=== PATIENT | female | born 1990 | race Caucasian/White ===

== ENCOUNTER 2019-01-23 08:00 | Inpatient (IN) ==
[2019-01-23] MEDS ORDERED: Metoclopramide 10 MG/2 ML VIAL IVP PRN (09:00)
[2019-01-23] MEDS ORDERED: Naloxone 0.4 MG/ML INJ IVP PRN (09:00)
[2019-01-23] MEDS ORDERED: Ringers Solution, Lactated 1,000 ML IVC SCH (09:00)
[2019-01-23] MEDS ORDERED: Ondansetron 4 MG/2 ML VIAL IVP PRN (09:00)
[2019-01-23] MEDS ORDERED: Famotidine 20 MG/2 ML VIAL IVP PRN (09:00)
[2019-01-23 09:17] LABS: Basophils % 0.2 %; Eosinophils # 0.1 K/mcL (0.0-0.6); Eosinophils % 0.9 %; Hematocrit 36.5 % (35.3-44.9); Hemoglobin 11.8 g/dL (11.5-15.4); Immature Granulocytes % 0.7 % (0-4); Lymphocytes # 1.4 K/mcL (0.6-4.6); Lymphocytes % 17.1 %; Mean Corpuscular HGB Conc 32.3 g/dL (31.6-35.5); Mean Corpuscular Hemoglobin 26.7 pg (28.0-33.3); Mean Corpuscular Volume 82.6 fL (83.0-100.0); Mean Platelet Volume 11.1 fL (9.4-12.4); Monocytes # 0.6 K/mcL (0.0-1.3); Monocytes % 7.9 %; Neutrophils # 5.9 K/mcL (1.6-8.9); Platelet Count 225 K/mcL (140-400); Red Blood Count 4.42 M/mcL (3.82-4.97); Red Cell Distribution Width 15.5 % (11.5-14.5); Segmented Neutrophils % 73.2 %
[2019-01-23 09:25] LABS: Amphetamine Screen,Urine Negative ng/mL (Cutoff=1000); Barbiturate Screen,Urine Negative ng/mL (Cutoff=200); Benzodiazepines Screen,Urine Negative ng/mL (Cutoff=200); Cannabinoid Screen,Urine Negative ng/mL (Cutoff = 50); Cocaine Screen,Urine Negative ng/mL (Cutoff= 300); Opiate Screen,Urine Negative ng/mL (Cutoff=300); Phencyclidine Screen,Urine Negative ng/mL (Cutoff=25)
--- NOTE | 2019-01-23 10:05 | OB Labor Progress Note ---
Date of Encounter: 01/23/19 Time of Encounter: 10:04 Labor Progress Note - Subjective Subjective: Pt is having irregular uc's - Cervix Cervix: 3-4/80/-2 - Heart Tones Heart Tones: RNST, CAt 1 - Interventions Interventions: AROM avg amt clear fluid - Plan Plan: Expect
[2019-01-23] MEDS ORDERED: miSOPROStol 25 MCG TABLET PO PRN (14:46)
--- NOTE | 2019-01-23 17:00 | OB/GYN History & Physical ---
Date of Encounter: 01/23/19 Time of Encounter: 16:58 Assessment and Plan (1) 39 weeks gestation of Current visit: Yes Status: Acute Pt presents for induction of labor. Will perform amniotomy and expect . History of Present Illness Chief complaint: Here for induction, h/o precipatous delivery HPI: Ms. Pickett is a 28 year old female female presents for induction of labor. has been uncomplicated. Pt reports + GFM, no vb or lof. Past Med Surg Social Fam HX - Past Medical History Source: patient, old records reviewed Medical history: no medical history, other Additional medical history: iron deficiency Psychiatric history: no psych history - Past Surgical History Additional surgical history: cosmetic surgert- tumy tuck and breast augmentation-2015. Tumor on right overy removed 2009 - Social History Smoking Status: Never smoker Smokeless Tobacco Status: No Alcohol use: none Drug use: none Obstetrical History - Pregnancies : 3 Para: 2 Medications and Allergies Vitamin Tablet 1 tab PO DAILY 01/23/19 [History] Allergy/AdvReac Type Severity Reaction Status Date / Time No Known Allergies Allergy Verified 01/23/19 08:54 Exam - Constitutional Constitutional: well developed, no acute distress - HEENT HEENT: EOMI, PERRL - Neck Neck exam: full ROM - Lungs Respiratory exam: CTAB - Cardiovascular Cardiovascular exam: RRR - Abdomen Abdomen: Present: gravid - Extremities Extremities exam: full ROM Deep Tendon Reflex Grade: 2+ Normal - Cervix Dilation: 4 Effacement: 90 Station: -2 () Results Result Diagrams: 01/23/19 08:45 Abnormal lab results MCV 82.6 fL (83.0-100.0) L 01/23/19 08:45 MCH 26.7 pg (28.0-33.3) L 01/23/19 08:45 RDW 15.5 % (11.5-14.5) H 01/23/19 08:45 All other labs normal. - VTE Reasons for not Prescribing Prophylaxis: Treatment not Indicated - Low risk for VTE
[2019-01-23] MEDS: *HR* Nalbuphine 10 MG/ML AMPUL IVP PRN ×2 (18:41→20:33)
[2019-01-23] MEDS ORDERED: Oxytocin 20 units/ LR 1000 mL 20 UNIT/1,000 ML BAG IVC ONE ×2 (20:22→22:31)
--- NOTE | 2019-01-23 21:57 | OB/GYN Procedure Note ---
Delivery - Delivery Date: 01/23/19 Provider: Irving Teran Intrapartum events: none Delivery induction: AROM, misoprostol - Infant (s) Infant A Delivery Date: 01/23/19 Delivery Time: 21:25 Presentation: vertex Position: SCARLET Route of delivery: Gender: Male Viability: Viable Weight Gram: 3.845 kg at 1 minute: 8 at 5 mins: 9 Shoulder Dystocia: not encountered Specimens collected: cord blood Placenta: spontaneous Cord: 3 umbilical vessels - Repair Episiotomy: none Laceration Description: None - Complications Delivery complications: none - Disposition Mom disposition: stable in LDR disposition: stable in LDR - Comments Comments: Patient is status post normal spontaneous vaginal delivery of liveborn male infant weighing 8 lbs. 8 oz. Apgars were 8 at 1 minute and 9 at 5 minutes with spontaneous to three-vessel cord and laceration bolus turned cc mother and recovered in labor and delivery room
[2019-01-23] MEDS ORDERED: Acetaminophen 325 MG TABLET PO PRN (23:59)
[2019-01-23] MEDS ORDERED: Oxytocin 20 units/ LR 1000 mL 20 UNIT/1,000 ML BAG IVC SCH (23:59)
[2019-01-23] MEDS ORDERED: Measles/Mumps/Rubella Vacc 0.5 ML VIAL SQ PRN (23:59)
[2019-01-23] MEDS ORDERED: Rho Immune Globulin 1,500 UNIT SYRINGE IM PRN (23:59)
[2019-01-24] MEDS: Ibuprofen 600 MG TABLET PO PRN ×3 (00:13→14:42)
[2019-01-24 03:57] LABS: Basophils % 0.2 %; Eosinophils # 0.1 K/mcL (0.0-0.6); Eosinophils % 0.4 %; Hemoglobin 11.9 g/dL (11.5-15.4); Immature Granulocytes % 0.4 % (0-4); Lymphocytes # 1.5 K/mcL (0.6-4.6); Mean Corpuscular HGB Conc 33.1 g/dL (31.6-35.5); Mean Corpuscular Hemoglobin 26.4 pg (28.0-33.3); Mean Platelet Volume 11.2 fL (9.4-12.4); Monocytes # 1.1 K/mcL (0.0-1.3); Neutrophils # 12.6 K/mcL (1.6-8.9); Platelet Count 224 K/mcL (140-400); Red Cell Distribution Width 15.6 % (11.5-14.5)
[2019-01-24] MEDS ORDERED: Prenatal Vit/FA 1 EACH TABLET PO SCH (09:00)
--- NOTE | 2019-01-24 11:33 | Discharge Summary ---
Date of Encounter: 01/24/19 Time of Encounter: 11:00 - Discharge Diagnosis (1) Status post vaginal delivery Priority: Primary Status: Acute Comments: Pt meeting PPD1 milestones. Reports pain managed by Ibuprofen. Discussed control options and safe spacing. Patient's plans for vasectomy, patient declines control at this time. Anticipate discharge home today. (2) Breast feeding status of mother Priority: Secondary Status: Acute Comments: Reports is going well. Pump Rx given. - Discharge Medications Prescriptions: New Ibuprofen [Motrin] 600 mg PO Q6HR PRN #30 tablet PRN Reason: Cramping Docusate [Colace] 100 mg PO BID #30 capsule Continue Vitamin Tablet 1 tab PO DAILY Home Medications: Vitamin Tablet 1 tab PO DAILY 01/23/19 [History] Breast Pump [BREAST PUMP] 1 each .ROUTE AD #1 each 01/24/19 [Rx] Docusate [Colace] 100 mg PO BID #30 capsule 01/24/19 [Rx] Ibuprofen [Motrin] 600 mg PO Q6HR PRN #30 tablet 01/24/19 [Rx] Allergies/Adverse Reactions: Allergy/AdvReac Type Severity Reaction Status Date / Time No Known Allergies Allergy Verified 01/23/19 08:54 Data Procedures and tests throughout hospitalization: Laboratory Tests 01/23/19 01/23/19 01/23/19 08:45 08:45 22:02 WBC 8.1 RBC 4.42 Hgb 11.8 Hct 36.5 MCV 82.6 L MCH 26.7 L MCHC 32.3 RDW 15.5 H Plt Count 225 MPV 11.1 Immature Gran % 0.7 Seg Neutrophils % 73.2 Lymphocytes % 17.1 Monocytes % 7.9 Eosinophils % 0.9 Basophils % 0.2 Neutrophils # 5.9 Lymphocytes # 1.4 Monocytes # 0.6 Eosinophils # 0.1 Basophils # 0.0 Urine Opiates Screen Negative Ur Barbiturates Screen Negative Ur Phencyclidine Scrn Negative Ur Amphetamines Screen Negative U Benzodiazepines Scrn Negative Urine Cocaine Screen Negative U Marijuana (THC) Screen Negative Ur Drug Screen Interp See Below Baby's Blood Type B RH NEGATIVE Mother's Blood Type B RH NEGATIVE Rhogam Indicated NO 01/24/19 03:47 WBC 15.3 H D RBC 4.50 Hgb 11.9 Hct 36.0 MCV 80.0 L MCH 26.4 L MCHC 33.1 RDW 15.6 H Plt Count 224 MPV 11.2 Immature Gran % 0.4 Seg Neutrophils % 82.0 Lymphocytes % 10.0 Monocytes % 7.0 Eosinophils % 0.4 Basophils % 0.2 Neutrophils # 12.6 H Lymphocytes # 1.5 Monocytes # 1.1 Eosinophils # 0.1 Basophils # 0.0 Urine Opiates Screen Ur Barbiturates Screen Ur Phencyclidine Scrn Ur Amphetamines Screen U Benzodiazepines Scrn Urine Cocaine Screen U Marijuana (THC) Screen Ur Drug Screen Interp Baby's Blood Type Mother's Blood Type Rhogam Indicated Labs on day of discharge: Labs from last 24 hours 01/24/19 01/23/19 03:47 22:02 WBC 15.3 H D RBC 4.50 Hgb 11.9 Hct 36.0 MCV 80.0 L MCH 26.4 L MCHC 33.1 RDW 15.6 H Plt Count 224 MPV 11.2 Immature Gran % 0.4 Seg Neutrophils % 82.0 Lymphocytes % 10.0 Monocytes % 7.0 Eosinophils % 0.4 Basophils % 0.2 Neutrophils # 12.6 H Lymphocytes # 1.5 Monocytes # 1.1 Eosinophils # 0.1 Basophils # 0.0 Baby's Blood Type B RH NEGATIVE Mother's Blood Type B RH NEGATIVE Rhogam Indicated NO Date of admission: 01/23/19 08:06 Primary care physician: Steven Sloan DO Consults: 01/23/19 23:59 Consult to [employer] Hand [CONS] Routine Comment: Vaginal delivery, consult needed Discharging clinician: Maria Isabel Arias Anticipated date of discharge: 01/24/19 - Patient Status Disposition: Home, Self-Care Condition: Good Functional capacity at discharge: independent ambulation Overall status at discharge: patient is progressing back to baseline - Discharge Instructions Follow Up With: Wale Sloan DO [Primary Care Provider] - Irving Teran MD [Partnered Physician] - - Diet and Activity Activity: increase activity as tolerated Diet: advance to your usual diet Hospital Course Reason for admission: induction of labor, IUP at term Delivery: Episiotomy: none Laceration: none Other procedures: none complications: none Discharge diagnosis: IUP at term delivered baby: male Hospital course: - Delivery Date: 01/23/19 Provider: Irving Teran Intrapartum events: none Delivery induction: AROM, misoprostol - Infant (s) Infant A Infant Delivery Date: 01/23/19 Delivery Time: 21:25 Presentation: vertex Position: SCARLET Route of delivery: Gender: Male Viability: Viable Weight Gram: 3.845 kg at 1 minute: 8 at 5 mins: 9 Shoulder Dystocia: not encountered Specimens collected: cord blood Placenta: spontaneous Cord: 3 umbilical vessels - Repair Episiotomy: none Laceration Description: None - Complications Delivery complications: none - Disposition Mom disposition: stable in LDR [place] disposition: stable in LDR - Comments Comments: Patient is status post normal spontaneous vaginal delivery of liveborn male weighing 8 lbs. 8 oz. Apgars were 8 at 1 minute and 9 at 5 minutes with spontaneous to three-vessel cord and laceration bolus turned cc mother and infant recovered in labor and delivery room Time Attestation: Total time spent providing and/or coordinating discharge services: Exam - Constitutional Vitals: Temp Pulse Resp BP Pulse Ox 98.1 F 101 14 126/78 93 01/24/19 08:07 01/24/19 08:07 01/24/19 08:07 01/24/19 08:07 01/24/19 08:07 General appearance IM: A&O X 3, pleasant, no acute distress - Respiratory Respiratory exam: Present: CTAB - Cardiovascular Cardiovascular exam IM: Present: RRR - GI/Abdominal GI/Abdominal exam IM: normal bowel sounds - Uterine Tone: Firm Uterus Position: At Umbilicus, Midline - Extremities Exam Extremities exam IM: Present: normal capillary refill, pedal edema (1+ ). Absent: calf tenderness - Neurological Exam Neurological exam: alert, oriented X3, reflexes normal - Psychiatric Additional comments: reports good mood
[2019-01-24 21:04] VITALS: BP 124/85
== END 2019-01-24 23:00 | disposition home or self-care (01) | DRG 807 ==
LOC: 1NENULAB 08:06 → 1NENUOBS 23:59
PROVIDERS: ADMIT Obstetrics & Gynecology; ATTEND Obstetrics & Gynecology